=== PATIENT | female | born 1965 | race Caucasian/White ===

== ENCOUNTER 2022-06-28 09:54 | Outpatient (CLI) | payer BC, SELFPAY | END 2022-06-28 09:55 | disposition home or self-care (01) | PROVIDERS: Visit Provider Obstetrics & Gynecology | DX: Z01.419 Encounter for gynecological examination (general) (routine) without abnormal findings (principal); E04.1 Nontoxic single thyroid nodule; E78.5 Hyperlipidemia, unspecified; Z13.1 Encounter for screening for diabetes mellitus | CPT/HCPCS: 80061; 82947; 84443 ==

== ENCOUNTER 2022-11-04 10:53 | Outpatient (CLI) | payer BC, SELFPAY ==
--- NOTE | 2022-11-04 11:00 | CRLHL7_ITS ---
For Patients: As a result of the Century Cures Act, medical imaging exams and procedure reports are released immediately into your electronic medical record. You may view this report before your referring provider. If you have questions, please contact your health care provider. INDICATION: Follow-up thyroid lobe nodule. TECHNIQUE: Directed thyroid ultrasound. COMPARISON: September 24, 2016. FINDINGS: The right thyroid lobe measures 4.0 x 1.4 x 1.4 cm. The left thyroid lobe measures 4.3 x 1.2 x 1.7 cm. The isthmus measures 0.2 cm in thickness. Within the inferomedial left thyroid gland is a well-circumscribed 5 x 3 x 4 mm solid nodule, previously measuring 8 x 4 x 6 mm. This should be benign. IMPRESSION: Smaller left-sided thyroid lobe nodule measuring up to 5 mm, previously 8 mm. The examination is otherwise negative. TI-RADS 1: Benign Dictated by Roger Broussard MD @ 11/04/2022 12:39:28 PM (Electronically Signed)
== END 2022-11-04 10:54 | disposition home or self-care (01) ==
PROVIDERS: PCP Family Medicine; Visit Provider Family Medicine
DX: E04.1 Nontoxic single thyroid nodule (principal)
CPT/HCPCS: 76536

== ENCOUNTER 2023-01-28 08:52 | Outpatient (CLI) | payer BC, SELFPAY | END 2023-01-28 08:53 | disposition home or self-care (01) | LOC: LKVREF 08:52 | PROVIDERS: PCP Family Medicine; Visit Provider Family Medicine | DX: E78.5 Hyperlipidemia, unspecified (principal) | CPT/HCPCS: 80061 ==

== ENCOUNTER 2023-07-02 14:13 | Outpatient (CLI) | payer BC, SELFPAY | END 2023-07-02 14:14 | disposition home or self-care (01) | LOC: NFLDREF 14:15 | PROVIDERS: PCP Family Medicine; Visit Provider Obstetrics & Gynecology | DX: R32 Unspecified urinary incontinence (principal) | CPT/HCPCS: 87086; 87186 ==

== ENCOUNTER 2023-07-31 11:11 | Outpatient (CLI) | payer BC, SELFPAY ==
--- NOTE | 2023-07-31 11:30 | MM_ITS ---
Patient: SOFI PEACOCK Facility:?[facility] Patient ID:?[id number] Site Patient ID:?[id number] Site :?[id number] Study:?XRay-Breast Bilateral 3D W/CAD-07/31/2023 1:58:55 PM Ordering Physician:James Final Report: BILATERAL SCREENING MAMMOGRAM WITH COMPUTER-AIDED DETECTION AND TOMOSYNTHESIS TECHNIQUE: CC and MLO views were obtained. These mammographic images have been obtained using full-field digital technique. These mammographic images were interpreted with the benefit of computer-aided detection. Breast Tomosynthesis was used in this interpretation. COMPARISON FILM: 10/09/20, 09/24/16, 11/07/11. FINDINGS: There are scattered areas of fibroglandular density. IMPRESSION: There is no radiographic evidence for malignancy. ASSESSMENT: BI-RADS Category 1: Negative RECOMMENDATION: Routine screening mammogram in 1 year. A lay language report of this examination will be provided to the patient. Juan Gonzalez M.D. Diagnostic Radiologist [email or web address] DSM/sp R& Transcribed: 7:00 p.m. SP/Dictated by: Juan Gonzalez MD @ 08/04/2023 8:56:00 AM Signed by:?Juan Gonzalez MD @08/04/2023 8:47:44 PM (Electronic Signature)
== END 2023-07-31 11:12 | disposition home or self-care (01) ==
LOC: MAMMO 11:11
PROVIDERS: PCP Family Medicine; Visit Provider Obstetrics & Gynecology
DX: Z12.31 Encounter for screening mammogram for malignant neoplasm of breast (principal)
CPT/HCPCS: 77063; 77067

== ENCOUNTER 2024-04-05 08:55 | Outpatient (CLI) | payer BC, SELFPAY | END 2024-04-05 08:56 | disposition home or self-care (01) | LOC: NFLDREF 04-07 01:20 | PROVIDERS: PCP Family Medicine; Referring Provider Family Medicine; Visit Provider Family Medicine | DX: R53.83 Other fatigue (principal); E78.5 Hyperlipidemia, unspecified | CPT/HCPCS: 80053; 80061; 84443 ==